=== PATIENT | male | born 1960 | race Two or more races ===

== ENCOUNTER 2017-09-08 18:09 | Observation (INO) | payer OTHER ==
[2017-09-08 18:19] VITALS: BMI 21.9
--- NOTE | 2017-09-08 18:21 | PDOC ---
Rapid Medical Evaluation Time Seen by Provider: 09/08/17 18:19 Medical Evaluation: Allergies Allergy/AdvReac Type Severity Reaction Status Date / Time No Known Allergies Allergy Verified 09/08/17 18:11 Vital Signs Temp Pulse Resp BP Pulse Ox 98.1 F 78 20 142/83 97 09/08/17 18:12 09/08/17 18:12 09/08/17 18:12 09/08/17 18:12 09/08/17 18:12 09/08/17 18:19 I have performed a brief in-person evaluation of the patient. The patient presents with a chief complaint of : sent from [facility] office for admission due to chest pain States chest pain x 3 days. Also recently treated with amoxicillin for bronchitis. Denies dizziness or nausea Pertinent physical exam findings. monroe unlabored breathing heart s1s2 I have ordered the following ekg, labs This patient will proceed to the ED for further evaluation.
--- NOTE | 2017-09-08 18:32 | PDOC ---
History of Present Illness - General History Source: Patient Exam Limitations: No Limitations - History of Present Illness Initial Comments: 09/08/17 19:23 The patient is a 57 year old male with past medical history of bronchitis presents to the emergency department complaining of chest pain. The patient was sent in by Dr. Guthrie for admission after meeting with the patient earlier today. The patient reports chest pain for the past 3 days. The patient reports he is unable to do anything due to the chest pain, which caused concern. The patient reports taking baby aspirin every other day, reports none taken today. The patient reports a recent diagnosed of bronchitis which was treated with amoxicillin. Denies sob or wheezing. Denies fever, chills, cough or headache. Denies diarrhea or constipation. Denies dysuria, hematuria, frequency or urgency to urinate. Allergies: NKDA Social history: Reports daily history of smoking. Denies history of alcohol or recreational drug use. Surgical history: None reported PCP: Dr. Guthrie <Josiane Burton - Last Filed: 09/08/17 19:27> <Tanesha Graff - Last Filed: 09/08/17 22:22> - General Chief Complaint: Chest Pain Stated Complaint: CHEST PAIN Time Seen by Provider: 09/08/17 18:19 Past History <Josiane Burton - Last Filed: 09/08/17 19:27> - Past Medical History COPD: No - Suicide/Smoking/Psychosocial Hx Smoking History: Current every day smoker Number of Cigarettes Smoked Daily: 30 Information on smoking cessation initiated: No Hx Alcohol Use: No Drug/Substance Use Hx: No Substance Use Type: None, Alcohol <Tanesha Graff - Last Filed: 09/08/17 22:22> - Past Medical History Allergies/Adverse Reactions: Allergies Allergy/AdvReac Type Severity Reaction Status Date / Time No Known Allergies Allergy Verified 09/08/17 18:11 Review of Systems - Review of Systems Able to Perform ROS?: Yes Comments:: 09/08/17 19:28 GENERAL/CONSTITUTIONAL: No fever or chills. No weakness. HEAD, EYES, EARS, NOSE AND THROAT: No change in vision. No ear pain or discharge. No sore throat. CARDIOVASCULAR: (+) chest pain No shortness of breath. RESPIRATORY: No cough, wheezing, or hemoptysis. GASTROINTESTINAL: No nausea, vomiting, diarrhea or constipation. GENITOURINARY: No dysuria, frequency, or change in urination. MUSCULOSKELETAL: No joint or muscle swelling or pain. No neck or back pain. SKIN: No rash NEUROLOGIC: No headache, vertigo, loss of consciousness, or change in strength/ sensation. ENDOCRINE: No increased thirst. No abnormal weight change. HEMATOLOGIC/LYMPHATIC: No anemia, easy bleeding, or history of blood clots. ALLERGIC/IMMUNOLOGIC: No hives or skin allergy. <Josiane Burton - Last Filed: 09/08/17 19:27> *Physical Exam - Vital Signs Last Vital Signs Temp Pulse Resp BP Pulse Ox 98.1 F 78 20 142/83 97 09/08/17 18:12 09/08/17 18:12 09/08/17 18:12 09/08/17 18:12 09/08/17 18:12 - Physical Exam Comments: 09/08/17 18:53 GENERAL: Awake, alert, and fully oriented, in no acute distress HEAD: No signs of trauma EYES: PERRLA, EOMI, sclera anicteric, conjunctiva clear ENT: Auricles normal inspection, hearing grossly normal, nares patent, oropharynx clear without exudates. Moist mucosa NECK: Normal ROM, supple, no lymphadenopathy, JVD, or masses LUNGS: Breath sounds equal, clear to auscultation bilaterally. No wheezes, and no crackles HEART: Regular rate and rhythm, normal S1 and S2, no murmurs, rubs or gallops ABDOMEN: Soft, nontender, normoactive bowel sounds. No guarding, no rebound. No masses EXTREMITIES: Normal range of motion, no edema. No clubbing or cyanosis. No cords, erythema, or tenderness NEUROLOGICAL: Cranial nerves II through XII grossly intact. Normal speech, normal gait SKIN: Warm, Dry, normal turgor, no rashes or lesions noted. 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 <Tanesha Graff - Last Filed: 09/08/17 22:22> ED Treatment Course - LABORATORY CBC & Chemistry Diagram: 09/08/17 19:00 09/08/17 19:00 <Josiane Burton - Last Filed: 09/08/17 19:27> - LABORATORY CBC & Chemistry Diagram: 09/08/17 19:00 09/08/17 19:00 <Tanesha Garff - Last Filed: 09/08/17 22:22> Medical Decision Making - Medical Decision Making 09/08/17 18:[address] Guthrie for admission for chest pain, abnormal EKG. EKG from office is similar to our EKG in ED. He did not take aspirin today. Will give him aspirin and admit him once labs return. <Tanesha Graff - Last Filed: 09/08/17 22:22> *DC/Admit/Observation/Transfer <Josiane Burton - Last Filed: 09/08/17 19:27> - Discharge Dispostion Decision to Admit order: Yes <Tanesha Graff - Last Filed: 09/08/17 22:22> Diagnosis at time of Disposition: Chest pain Qualifiers: Chest pain type: unspecified Qualified Code(s): R07.9 - Chest pain, unspecified - Discharge Dispostion Condition at time of disposition: Stable
[2017-09-08] MEDS ORDERED: ASPIRIN 81 MG CHEWABLE TABLETS PO ONE (18:54)
[2017-09-08 19:15] LABS: BASO % 0.7 % (0-2.0); EOS % 0.7 % (0-4.5); MCHC 33.2 g/dl (32.0-35.9); MEAN CELL VOLUME 81.4 fl (80-96); MEAN PLT VOLUME 7.7 fl (7.5-11.1); MONO % 9.1 % (3.8-10.2); NEUT % 56.5 % (42.8-82.8); PLATELET COUNT 266 K/MM3 (134-434); RBC 5.16 M/mm3 (4.00-5.60); RDW 13.8 % (11.9-15.9); WHITE BLOOD COUNT 7.2 K/mm3 (4.0-10.0)
[2017-09-08 19:48] LABS: INR 1.11 (0.82-1.09); PROTHROMBIN TIME (PATIENT) 12.5 SEC (9.7-13.0)
[2017-09-08 19:50] LABS: ACTIVATED PTT 32.8 SECONDS (26.9-34.4)
[2017-09-08] MEDS ORDERED: ASPIRIN 81 MG CHEWABLE TABLETS ONE (19:51)
[2017-09-08 19:55] LABS: ALBUMIN 3.7 g/dl (3.4-5.0); ANION GAP 4 (8-16); BLOOD UREA NITROGEN 14 mg/dL (7-18); CALCIUM 8.9 mg/dL (8.5-10.1); CHLORIDE 109 mmol/L (98-107); CO2 27 mmol/L (21-32); CREATININE 0.8 mg/dL (0.7-1.3); GLUCOSE,RANDOM 74 mg/dL (74-106); POTASSIUM 4.2 mmol/L (3.5-5.1); SGOT/AST 11 U/L (15-37); SGPT/ALT 17 U/L (12-78); SODIUM 140 mmol/L (136-145)
[2017-09-08 19:58] LABS: ALK PHOS 66 U/L (45-117); BILIRUBIN,TOTAL 0.4 mg/dL (0.2-1.0)
--- NOTE | 2017-09-08 23:30 | HP ---
Chief Complaint: Chest Pain PCP: Dr. Guthrie History of Present Illness: This is a 57 y/o man with a past medical history of Bronchitis. Who presents to the ED sent in by his PCP for admission for chest pain x 3days. Patient reports pain increased with movement and on deep inspiration. Patient denies fever, chills, cough, diaphoresis, dizziness, palpitations, AP, N/V/D, constipation, dysuria. ER course was notable for: (1) Troponin I < 0.02 (2) EKG NSR 74bpm LAFB, +LAD (3) Chest Xray- no acute pathology Recent Travel: PAST MEDICAL HISTORY: Bronchitis PAST SURGICAL HISTORY: Social History: Smoking: Current Alcohol: None Drugs: None Family History: Mother: Heart Disease Allergies No Known Allergies Allergy (Verified 09/08/17 18:11) HOME MEDICATIONS: Home Medications Medication Instructions Recorded Aspirin [ASA -] 81 mg PO DAILY 09/08/17 REVIEW OF SYSTEMS CONSTITUTIONAL: Absent: fever, chills, diaphoresis, generalized weakness, malaise, loss of appetite, weight change HEENT: Absent: rhinorrhea, nasal congestion, throat pain, throat swelling, difficulty swallowing, mouth swelling, ear pain, eye pain, visual changes CARDIOVASCULAR: chest pain Absent: syncope, palpitations, irregular heart rate, lightheadedness, peripheral edema RESPIRATORY: pain on deep inspiration Absent: cough, shortness of breath, dyspnea with exertion, orthopnea, wheezing, stridor, hemoptysis GASTROINTESTINAL: Absent: abdominal pain, abdominal distension, nausea, vomiting, diarrhea, constipation, melena, hematochezia GENITOURINARY: Absent: dysuria, frequency, urgency, hesitancy, hematuria, flank pain, genital pain MUSCULOSKELETAL: Absent: myalgia, arthralgia, joint swelling, back pain, neck pain SKIN: Absent: rash, itching, pallor HEMATOLOGIC/IMMUNOLOGIC: Absent: easy bleeding, easy bruising, lymphadenopathy, frequent infections ENDOCRINE: Absent: unexplained weight gain, unexplained weight loss, heat intolerance, cold intolerance NEUROLOGIC: Absent: headache, focal weakness or paresthesias, dizziness, unsteady gait, seizure, mental status changes, bladder or bowel incontinence PSYCHIATRIC: Absent: anxiety, depression, suicidal or homicidal ideation, hallucinations. PHYSICAL EXAMINATION Vital Signs - 24 hr 09/08/17 18:12 Temperature 98.1 F Pulse Rate 78 Respiratory 20 Rate Blood Pressure 142/83 O2 Sat by Pulse 97 Oximetry (%) GENERAL: Awake, alert, and fully oriented, in no acute distress. HEAD: Normal with no signs of trauma. EYES: Pupils equal, round and reactive to light, extraocular movements intact, sclera anicteric, conjunctiva clear. No lid lag. EARS, NOSE, THROAT: Ears normal, nares patent, oropharynx clear without exudates. Moist mucous membranes. NECK: Normal range of motion, supple without lymphadenopathy, JVD, or masses. LUNGS: Breath sounds equal, clear to auscultation bilaterally. No wheezes, and no crackles. No accessory muscle use. HEART: Regular rate and rhythm, normal S1 and S2 without murmur, rub or gallop. CP reproducible ABDOMEN: Soft, nontender, not distended, normoactive bowel sounds, no guarding, no rebound, no masses. No hepatomegaly or splenomegaly. MUSCULOSKELETAL: Normal range of motion at all joints. No bony deformities or tenderness. No CVA tenderness. UPPER EXTREMITIES: 2+ pulses, warm, well-perfused. No cyanosis. No clubbing. No peripheral edema. LOWER EXTREMITIES: 2+ pulses, warm, well-perfused. No calf tenderness. No peripheral edema. NEUROLOGICAL: Cranial nerves II-XII intact. Normal speech. Gait not observed. PSYCHIATRIC: Cooperative. Good eye contact. Appropriate mood and affect. SKIN: Warm, dry, normal turgor, no rashes or lesions noted, normal capillary refill. Laboratory Results - last 24 hr 09/08/17 09/08/17 09/08/17 19:00 19:00 19:00 WBC 7.2 RBC 5.16 Hgb 14.0 Hct 42.0 MCV 81.4 MCH 27.0 MCHC 33.2 RDW 13.8 Plt Count 266 MPV 7.7 Neutrophils % 56.5 Lymphocytes % 33.0 Monocytes % 9.1 Eosinophils % 0.7 Basophils % 0.7 Nucleated RBC % 0 PT with INR 12.50 INR 1.11 PTT (Actin FS) 32.8 Sodium 140 Potassium 4.2 Chloride 109 H Carbon Dioxide 27 Anion Gap 4 L BUN 14 Creatinine 0.8 Creat Clearance w eGFR > 60 Random Glucose 74 Calcium 8.9 Total Bilirubin 0.4 AST 11 L ALT 17 Alkaline Phosphatase 66 Troponin I < 0.02 Total Protein 7.0 Albumin 3.7 ASSESSMENT/PLAN: 57 y/o man with PMHx Bronchitis. Placed in Tele Observation for Chest Pain r/o ACS Plan: Will place in Telemetry Observation for CP r/o ACS HEART Score 4 WIN Score 1 +EKG changes, no prior study to compare Serial Enzymes Continue cardiology monitoring Will check Mg, Phos, CBC, BMP in am Lipid Profile, HgbA1c Appreciate Cardiology consult Echo Consider Stress Test vs Nuclear Stress, will defer to Cardiology Asa given in ED, will continue Morphine Sulfate prn O2 Smoking Cessation DVT ppx- OOB, SCDs, Consider AC if LOS > 48hr FEN - PO fluids as tolerated - Replete lytes prn - Low Na Diet Code Status: Full Code Dispo: Tele Observation Problem List - Problem (1) Chest pain Code(s): R07.9 - CHEST PAIN, UNSPECIFIED Qualifiers: Chest pain type: unspecified Qualified Code(s): R07.9 - Chest pain, unspecified (2) DVT prophylaxis Code(s): [id number] - Visit type - Emergency Visit Emergency Visit: Yes ED Registration Date: 09/08/17 Care time: The patient presented to the Emergency Department on the above date and was hospitalized for further evaluation of their emergent condition. - New Patient This patient is new to me today: Yes Date on this admission: 09/08/17 - Critical Care Critical Care patient: No Hospitalist Screening - Colonoscopy Questionnaire Colonoscopy Questionnaire: Colonoscopy Questionnaire - Patient: 50 - 75 years old and never had a screening colonoscopy: No History of colon or rectal polyps, or CA: No History of IBD, Crohn's disease or UC: No History of abdominal radiation therapy as a child: No - Relative: 1 with colon or rectal CA, or polyps at age 60 or younger: No Colon or rectal CA diagnosed at age 45 or younger: No Multiple relatives with colon or rectal CA: No - Outcome: Screening Result: Negative Screen
[2017-09-09] MEDS ORDERED: morphine SULFATE 4 MG/ML VIAL IVPUSH PRN (02:29)
[2017-09-09 07:45] LABS: BASO % 0.5 % (0-2.0); EOS % 1.7 % (0-4.5); HEMATOCRIT 43.3 % (35.4-49); HEMOGLOBIN 14.3 GM/dL (11.7-16.9); LYMPH % 31.6 % (8-40); MCH 27.3 pg (25.7-33.7); MEAN CELL VOLUME 82.5 fl (80-96); MEAN PLT VOLUME 7.8 fl (7.5-11.1); NEUT % 56.2 % (42.8-82.8); PLATELET COUNT 255 K/MM3 (134-434); RBC 5.25 M/mm3 (4.00-5.60); RDW 13.9 % (11.9-15.9); WHITE BLOOD COUNT 5.8 K/mm3 (4.0-10.0)
[2017-09-09 08:05] LABS: CHLORIDE 107 mmol/L (98-107); POTASSIUM 4.1 mmol/L (3.5-5.1); SODIUM 139 mmol/L (136-145)
[2017-09-09 08:20] LABS: ANION GAP 6 (8-16); CALCIUM 8.8 mg/dL (8.5-10.1); CHOLESTEROL 160 mg/dL (50-200); CO2 26 mmol/L (21-32); CREATININE 0.7 mg/dL (0.7-1.3); GLUCOSE,RANDOM 87 mg/dL (74-106); HDL CHOLESTEROL 48 mg/dL (40-60); MAGNESIUM 2.1 mg/dL (1.8-2.4); PHOSPHOROUS 2.8 mg/dL (2.5-4.9); TRIGLYCERIDES 79 mg/dL (35-160)
[2017-09-09 08:40] LABS: BLOOD UREA NITROGEN 11 mg/dL (7-18)
[2017-09-09] MEDS ORDERED: ASPIRIN 81 MG CHEWABLE TABLETS PO SCH (10:00)
[2017-09-09] MEDS ORDERED: REGADENOSON 0.4 MG/5 ML PRE-FILLED SYRINGE IVPUSH ONE ×2 (10:15→13:23)
--- NOTE | 2017-09-09 10:59 | PN ---
Progress Note, Physician Chief Complaint: Atypical Chest pain History of Present Illness: NAD, sitting in a chair waiting for Nuclear stress test No more chest pain Trops negative EKG unremarkable Being seen by cardiology CT chest unremarkable - Current Medication List Current Medications: Active Medications Aspirin (Asa -) 81 mg PO DAILY MALINA Morphine Sulfate (Morphine Sulfate) 2 mg IVPUSH Q6H PRN PRN Reason: PAIN LEVEL 7 - 10 - Objective Vital Signs: Vital Signs Temperature 97.9 F 09/09/17 07:25 Pulse Rate 72 09/09/17 07:25 Respiratory Rate 18 09/09/17 07:25 Blood Pressure 116/74 09/09/17 07:25 O2 Sat by Pulse Oximetry (%) 97 09/09/17 07:25 Constitutional: Yes: Well Nourished, No Distress, Calm Cardiovascular: Yes: Regular Rate and Rhythm Respiratory: Yes: Regular Musculoskeletal: Yes: WNL Extremities: Yes: WNL Edema: No Peripheral Pulses WNL: Yes Neurological: Yes: Alert, Oriented Psychiatric: Yes: Alert, Oriented Labs: CBC, BMP 09/09/17 06:20 09/09/17 06:20 INR, PTT INR 1.11 (0.82-1.09) 09/08/17 19:00 Problem List - Problems (1) Atypical chest pain Assessment/Plan: -Trops x 3 negative -labs unremarkable -CT chest unremarkable -Nuclear stress test results pending -seen by cardiology -no contraindication for discharge, no further cardiac workup recommended Code(s): R07.89 - OTHER CHEST PAIN Assessment/Plan see problem list
--- NOTE | 2017-09-09 11:56 | CON.CARD ---
Consult Consult Specialty:: Cardiology Referred by:: Homero Gutierrez Reason for Consultation:: Chest pain - History of Present Illness Chief Complaint: Chest pain History of Present Illness: 57 year old male with a pmhx of bronchitis and tobacco use who presents from PCP office with chest pain. Patient reports that for last 3 days he has had very mild left sided chest pain. Pain is very mild, reproducible to touch and with deep inspiration mild pain. Otherwise, he feels well. No chest pain with exertion. No sob, palpitations, or diaphoresis. Non radiating pain. Walks a lot last few days with no chest pain with exertion. - History Source History Provided By: Patient, Family Member - Alcohol/Substance Use Hx Alcohol Use: No - Smoking History Smoking history: Current every day smoker Aproximately how many cigarettes per day: 30 Home Medications - Allergies Allergies/Adverse Reactions: Allergies Allergy/AdvReac Type Severity Reaction Status Date / Time No Known Allergies Allergy Verified 09/08/17 18:11 - Home Medications Home Medications: Ambulatory Orders Aspirin [ASA -] 81 mg PO DAILY 09/08/17 Vital Signs: Vital Signs Temperature 97.9 F 09/09/17 07:25 Pulse Rate 72 09/09/17 07:25 Respiratory Rate 18 09/09/17 07:25 Blood Pressure 116/74 09/09/17 07:25 O2 Sat by Pulse Oximetry (%) 97 09/09/17 07:25 Constitutional: Yes: Well Nourished, No Distress Neck: Yes: Supple Respiratory: Yes: CTA Bilaterally Gastrointestinal: Yes: WNL Cardiovascular: Yes: Regular Rate and Rhythm JVD: No Carotid Bruit: No PMI: Non-Displaced Heart Sounds: Yes: S1, S2 Murmur: No: Systolic Murmur Edema: No - Other Data Labs, Other Data: CBC, BMP 09/09/17 06:20 09/09/17 06:20 INR, PTT INR 1.11 (0.82-1.09) 09/08/17 19:00 Troponin, BNP 09/08/17 09/09/17 09/09/17 19:00 01:41 06:20 Troponin I < 0.02 < 0.02 < 0.02 Troponin, BNP 09/08/17 09/09/17 09/09/17 19:00 01:41 06:20 Troponin I < 0.02 < 0.02 < 0.02 Imaging - Results Chest X-ray: Report Reviewed EKG: Image Reviewed Problem List - Problems (1) Chest pain Code(s): R07.9 - CHEST PAIN, UNSPECIFIED Qualifiers: Chest pain type: unspecified Qualified Code(s): R07.9 - Chest pain, unspecified Assessment/Plan 57 year old male with a pmhx of bronchitis and tobacco use who presents from PCP office with chest pain. Patient reports that for last 3 days he has had very mild left sided chest pain. Pain is very mild, reproducible to touch and with deep inspiration mild pain. Otherwise, he feels well. No chest pain with exertion. No sob, palpitations, or diaphoresis. Non radiating pain. Walks a lot last few days with no chest pain with exertion. 1) Chest pain -Cardiac enzymes negative EKG sinus with LAFB no acute st changes Vitals stable. Very comfortable with very atypical symptoms. No further cardiac work up indicated as an inpatient. Aspirin 81mg daily and follow up as outpatient for outpatient Cardiac work up/evaluation. [phone] Needs to stop smoking/discussed risks of smoking. Please call back if needed as will sign off.
--- NOTE | 2017-09-09 13:28 | EKG ---
Test Reason : Blood Pressure : / mmHG Vent. Rate : 074 BPM Atrial Rate : 074 BPM P-R Int : 122 ms QRS Dur : 106 ms QT Int : 380 ms P-R-T Axes : 071 -67 061 degrees QTc Int : 421 ms NORMAL SINUS RHYTHM INCOMPLETE RIGHT BUNDLE BRANCH BLOCK LEFT ANTERIOR FASCICULAR BLOCK ABNORMAL ECG NO PREVIOUS ECGS AVAILABLE Confirmed by ERASTO WINKLER MD ([id number]) on 09/09/2017 1:27:38 PM Referred By: Confirmed By:ERASTO WINKLER MD
[2017-09-09 16:00] VITALS: BP 118/71; PULSE 78; TEMP 97.8
== END 2017-09-09 16:00 | disposition home or self-care (01) ==
LOC: JER 18:09 → JERBED 22:22
PROVIDERS: ADMIT Internal Medicine; ATTEND Family Medicine
PROC: 3E033GC Introduction of Other Therapeutic Substance into Peripheral Vein, Percutaneous Approach (ICD-10-PCS; principal; 2017-09-08)
DX: R07.89 Other chest pain (principal); F17.200 Nicotine dependence, unspecified, uncomplicated
CPT/HCPCS: 36415; 71046-TC-FY; 71250-TC; 78452-TC; 80048; 80053; 80061; 83036; 83721; 83735; 84100; 84484; 85025; 85610; 85730; 93005; 93010; 93017; 93306-TC; 96374; 99285-25; A9502; G0378; J1245

== ENCOUNTER 2017-11-26 10:19 | Day surgery (SDC) | payer OTHER ==
[2017-11-26 11:51] VITALS: BMI 18.7
[2017-11-26] MEDS ORDERED: PROPOFOL 20 ML ONE ×3 (12:47)
[2017-11-26 13:21] VITALS: TEMP 97.5
--- NOTE | 2017-11-26 13:43 | PROC ---
Endoscopy Procedure Endoscopy procedure completed. Please see scanned procedure report.
[2017-11-26 13:48] VITALS: PULSE 64
[2017-11-26 14:20] VITALS: BP 115/63
== END 2017-11-26 14:21 | disposition home or self-care (01) ==
LOC: JASU-ENDO 10:19
PROVIDERS: ATTEND Internal Medicine Gastroenterology
PROC: 0DJD8ZZ Inspection of Lower Intestinal Tract, Via Natural or Artificial Opening Endoscopic (ICD-10-PCS; principal; 2017-11-26 12:30)
DX: Z12.11 Encounter for screening for malignant neoplasm of colon (principal); K64.8 Other hemorrhoids